=== PATIENT | female | born 1945 | race African-American/Black ===

== ENCOUNTER → 2021-09-20 | Outpatient (CLI) | payer MEDICARE ==
[~2021-09-20] MED LIST: ACETYLCYST200 MG/1 M PO; ALDACTONE25 MG PO; ALLOPURINOL 10100 M3 PO; ASPIRIN325 PO; B COMPLEX1 EACH PO; BUMETANIDE 1 MG1 M1 PO; CARVEDILOL25 MG PO; ENTRESTO 24 MG1 EACH PO; FUROSEMIDE 40 M40 M1 PO; KLOR-CON 10 ER10 MEQ PO; MULTIVITAMINS PO; NEXIUM40 MG PO; PRAVACHOL40 MG PO; VICODIN PO; VITAMIN D310 MC2 PO; ZOFRAN4 MG PO; [UNRECOGNIZED DRUG - REMARK]
== END ==
LOC: SJCVC 12:39
PROVIDERS: ATTEND Internal Medicine Cardiovascular Disease
DX: R94.31 Abnormal electrocardiogram [ECG] [EKG] (principal); I13.0 Hypertensive heart and chronic kidney disease with heart failure and stage 1 through stage 4 chronic kidney disease, or unspecified chronic kidney disease; I50.22 Chronic systolic (congestive) heart failure; N18.9 Chronic kidney disease, unspecified; I42.0 Dilated cardiomyopathy; E78.2 Mixed hyperlipidemia; I44.7 Left bundle-branch block, unspecified; Z79.82 Long term (current) use of aspirin; Z79.899 Other long term (current) drug therapy; Z87.891 Personal history of nicotine dependence

== ENCOUNTER 2021-10-16 08:50 | Inpatient (IN) | payer MEDICARE ==
[~2021-10-16] VITALS: Ht 175.3 cm; Wt 73.5 kg
[2021-10-16 10:53] LABS: ABSOLUTE NEUTROPHILS 1.8 thou/uL (1.4-8.2); BASOPHILS 0.9 % (0.0-2.0); EOSINOPHILS 1.6 % (0.0-3.0); HEMATOCRIT 37.8 % (37.0-47.0); HEMOGLOBIN 12.4 gm/dL (12.0-15.0); LYMPHOCYTES 32.4 % (24.0-44.0); MCH 30.4 pg (26.0-34.0); MCHC 32.8 g/dL (28.0-37.0); MCV 92.6 fL (80.0-100.0); MONOCYTES 10.1 % (1.0-8.0); PLATELET COUNT 144 thou/uL (150-400); RBC 4.08 mil/uL (4.20-5.00); RDW 14.7 % (10.5-14.5); WBC 3.3 thou/uL (4.0-11.0)
[2021-10-16 10:55] LABS: CALCIUM 9.3 mg/dL (8.5-10.1); CREATININE 1.9 mg/dL (0.6-1.0)
[2021-10-16 10:57] VITALS: BP 137/69
[2021-10-16 10:58] LABS: APTT 36.9 Seconds (24.5-32.8); INR 1.04; PROTIME 11.3 Seconds (10.5-12.1)
[2021-10-16 11:01] LABS: ALBUMIN 3.6 g/dL (3.4-5.0); TOTAL BILIRUBIN 1.1 mg/dL (0.2-1.0); TOTAL PROTEIN 7.2 g/dL (6.4-8.2)
[2021-10-16] MEDS ORDERED: PROAIR HFA8.5 GM INH ×2 (11:06→11:07)
[2021-10-16] MEDS ORDERED: FLUTICASONE-SA1 EAC5 INH (11:07)
[2021-10-16] MEDS ORDERED: ASA81BEC PO (11:08)
[2021-10-16] MEDS ORDERED: BUMEX2 MG PO (11:12)
[2021-10-16] MEDS ORDERED: VITAMIN B COMP1 EACH PO (11:14)
[2021-10-16] MEDS ORDERED: PRAVACHOL40 MG PO (11:15)
[2021-10-16 17:00] VITALS: BP 107/71
[2021-10-16 18:07] VITALS: BP 123/76
--- NOTE | 2021-10-16 18:55 | NUR ---
ASSUMED CARE OF PATIENT AT 1700. PATIENT COMES FROM PACU AFTER AN UNSUSSESSFUL BIV ICD INSERTION. PATIENT TO GO FOR SURGERY IN THE AM WITH DR. CHUNG. ADMISSION HISTORY COMPLETED, PATIENT HAD DINNER AND IS RESTING IN THE ROOM AT THIS TIME.
[2021-10-16 19:19] VITALS: BP 97/58
[2021-10-16 23:41] VITALS: BP 113/64
[2021-10-17] VITALS (7 sets, daily range): BP systolic 103–150; BP diastolic 53–64
--- NOTE | 2021-10-17 07:34 | NUR ---
PT RESTING QUIETLY IN ROOM, DENIES PAIN, VSS, IMMOBILIZER IN PLACE, HIBICLENS BATH GIVEN X2, NPO SINCE MNOC, REPORT GIVEN TO PRE-OP RN PLAN TO GRT PT BETWEEN 8 AND 830, WILL CON'T TO MONITOR PER PPOC
[2021-10-17 07:51] LABS: CALCIUM 9.6 mg/dL (8.5-10.1); CREATININE 2.1 mg/dL (0.6-1.0); POTASSIUM 4.5 mmol/L (3.5-5.1)
--- NOTE | 2021-10-17 08:11 | HC ---
[facility] [place] [address] [place] [address] CONSULTATION Name: LATIA ANTONIO Room #: 202-P [facility] MAbbe#: [id number] Admission: 10/16/21 Attend Phys: Issac Hill MD Discharge: Date of : 43 Report #: [id number] THIS REPORT FOR: cc: Teri Stoll MD, Julie MD Forman,Vinod Alegre MD ~ DATE OF SERVICE: 10/16/2021 We were asked by Dr. Hill for placement of ventricular leads for biventricular pacemaker. HISTORY OF PRESENT ILLNESS: The patient is a 76-year-old with nonischemic cardiomyopathy with increasing episodes of hospitalization for acute on chronic left ventricular systolic failure. The patient underwent cardiac catheterization in 06/2021 that showed no important coronary artery disease. There has been note of new onset of left bundle branch block. The patient was brought to the hospital today to upgrade to a biventricular cardioverter defibrillator. The patient is status post ICD placement in 2009 with a [employer] ICD. Device interrogation in the office showed a single-chamber [employer] ICD with pacing less than 1%, battery life is 1.5 years and there have been 10 nonsustained tachycardia episodes lasting a few seconds. No significant VT episodes. PAST MEDICAL HISTORY: Significant for dilated cardiomyopathy, hypertension, aortic valve insufficiency and chronic renal insufficiency. Echocardiogram in 05/2021 shows left ventricular ejection fraction of 20%, moderate mitral incompetence, moderate aortic incompetence, chronic renal insufficiency with a history of nephrectomy. Creatinine is currently 1.9, BUN 31. ALLERGIES: None known. MEDICATIONS: At home, albuterol, allopurinol, aspirin, B complex vitamins, Bumex, carvedilol, vitamin D, Nexium, Advair Diskus, hydrocodone, potassium, pravastatin and Entresto. FAMILY HISTORY: Significant for heart attack in mother. SOCIAL HISTORY: The patient is a former smoker. REVIEW OF SYSTEMS: GENERAL: No major weight changes, fever or chills. EYES: No recent vision changes. HEENT: No headache, sinus problems, hearing problems. CARDIAC: Shortness of breath with exertion. RESPIRATORY: Denies cough, sputum production, hemoptysis. GASTROINTESTINAL: No nausea, vomiting, diarrhea or blood. [address] [address] CONSULTATION Name: LATIA ANTONIO Room #: 202-P [facility] MBerto.#: [id number] Admission: 10/16/21 Attend Phys: Issac Hill MD Discharge: Date of : 43 Report #: [id number] GENITOURINARY: No urgency, frequency, blood. MUSCULOSKELETAL: No bone or joint complaints. ENDOCRINE: No goiter, no tremor. SKIN: No rash or infection. NEUROLOGIC: No motor or sensory dysfunction. PSYCHIATRIC: No significant depression. HEMATOLOGIC: No anemia. No bruising. PHYSICAL EXAMINATION: GENERAL: The patient is in bed after her procedure. VITAL SIGNS: Today, temperature 36.4, heart rate 94, respiratory rate 17, blood pressure 107/71, O2 sat 100% on room air. HEENT: No scleral icterus. Arcus senilis is present. NECK: No mass, no bruit. CHEST: Clear to auscultation anteriorly. HEART: Rhythm regular. I hear no significant murmur. ABDOMEN: Soft. No tenderness. EXTREMITIES: No clubbing, cyanosis or edema. VASCULAR: 2+ dorsalis pedis pulses. SKIN: No rash or infection. MUSCULOSKELETAL: No bone or joint asymmetry or deformity. NEUROLOGIC: No gross neurologic dysfunction. PSYCHIATRIC: Shows insight into problem; is awake, oriented x 3. ASSESSMENT AND PLAN: The patient has heart failure and biventricular pacemaker placement was foiled today by inability to place a LV lead. I have been asked to do this surgically. I have discussed risks and details of left anterior thoracotomy with placement of LV lead with the patient and her . Risks include but are not limited to bleeding, infection, anesthesia risks and risks of heart and lung function. The patient is at high risk due to poor ventricular function, but that is the essence of the problem we are trying to address. The patient and understand all of this and wish to proceed. I have arranged for surgery for tomorrow morning at 9:30. Thank you for the consult. <ELECTRONICALLY SIGNED> By: Vinod Frias MD 10/17/21 0811 [id number] 0051 Vinod Frias MD /nt
--- NOTE | 2021-10-17 12:00 | NUR ---
PT TRANSFERED TO [facility] VIA BED. NO CO'S AT TIME OF TREANSFER. PT TO ICU POST SURGERY.
[2021-10-17 13:49] LABS: BE(vivo) -1.6 mmol/L (-2 to +3); PCO2 56.3 mmHg (35.0-45.0); PO2 84.1 mmHg (80.0-100.0); sO2 94.9 % (92.0-98.0)
[2021-10-17 13:50] LABS: pH 7.282 (7.360-7.450)
--- NOTE | 2021-10-17 16:57 | NUR ---
1530-Received pt into 250 via bed from PACU.Pt moaning constantly,lying w eyes closed.--VW 1600- IN.--VW 1630- IN TO SEE.--VW
[2021-10-18 03:44] VITALS: BP 113/59
[2021-10-18 05:06] LABS: HEMATOCRIT 30.9 % (37.0-47.0); HEMOGLOBIN 10.5 gm/dL (12.0-15.0); MCH 30.9 pg (26.0-34.0); MCHC 33.8 g/dL (28.0-37.0); MCV 91.4 fL (80.0-100.0); RBC 3.38 mil/uL (4.20-5.00); RDW 15.1 % (10.5-14.5); WBC 5.4 thou/uL (4.0-11.0)
[2021-10-18 05:08] LABS: CREATININE 1.5 mg/dL (0.6-1.0)
[2021-10-18 07:44] VITALS: BP 127/62
[2021-10-18 11:44] VITALS: BP 126/62
[2021-10-18] MEDS ORDERED: MINOCYCLINE HC100 M2 PO (12:57)
[2021-10-18 15:44] VITALS: BP 120/61
--- NOTE | 2021-10-18 17:05 | NUR ---
PATIENT PROGRESSING TOWARDS THE PLAN OF CARE EVIDENCED BY PT NO LONGER NEEDING CARDENE TO KEEP SBP<160. OF THE PATIENT IN THE ROOM FOR THE MORNING.
[2021-10-18 19:44] VITALS: BP 113/57
[2021-10-19 03:44] VITALS: BP 137/70
[2021-10-19 07:44] VITALS: BP 135/73
--- NOTE | 2021-10-19 09:35 | NUR ---
ASSUMED CARE OF PT AT 0700 PT IS RESTING COMFORTABLY DR. GOLDBERG NURSE AT BEDSIDE AT 0830, POSSIBLE REMOVAL OF CHAUHAN AND ART LINE, THE NURSE WAS GOING TO GIVE AND UPDATE TO DR. CHUNG AND THEN LET ME KNOW.
--- NOTE | 2021-10-19 09:55 | NUR ---
Chart reviewed and case discussed with the care team. Pt is s/p bi-ventricular ICD placement with chest tube in place. Blood pressure and pain control issues yesterday. Awaiting CTS and cardiology imput regarding when her chest tube can come out and advancing her activity which has been limited. Pt is from home and lives with her spouse. Report to have been indep with gait and adl's. PCP is Dr Teri Stoll. Insurance in place for f/u care and scripts. No therapy orders noted at this time. Will follow along should dc needs arise.
[2021-10-19 11:44] VITALS: BP 131/73
--- NOTE | 2021-10-19 12:55 | NUR ---
CORAL CRANE, POLEYARD SUPERVISOR,IN TO SEE. CT TO WATER SEAL. IN TO SEE.--VW
[2021-10-19 13:09] LABS: HEMATOCRIT 31.7 % (37.0-47.0); HEMOGLOBIN 10.7 gm/dL (12.0-15.0); MCH 30.5 pg (26.0-34.0); MCHC 33.7 g/dL (28.0-37.0); MCV 90.5 fL (80.0-100.0); RBC 3.5 mil/uL (4.20-5.00); RDW 14.7 % (10.5-14.5); WBC 4.8 thou/uL (4.0-11.0)
[2021-10-19 13:22] LABS: CALCIUM 8.6 mg/dL (8.5-10.1); CREATININE 1.2 mg/dL (0.6-1.0); POTASSIUM 3.9 mmol/L (3.5-5.1)
[2021-10-19 15:45] VITALS: BP 135/76
[2021-10-19 19:44] VITALS: BP 116/66
[2021-10-19 23:44] VITALS: BP 125/65
[2021-10-20 03:14] VITALS: BP 129/75
[2021-10-20 05:13] VITALS: BP 109/76
[2021-10-20 06:13] VITALS: BP 133/79
--- NOTE | 2021-10-20 08:59 | NUR ---
ASSUMED CARE OF PT AT 0700
--- NOTE | 2021-10-20 14:07 | NUR ---
I have reviewed the documentation by AMINA MOSLEY from 10/20/21 to 10/20/21 and I concur with it. BECK LOPEZ, PT, DPT
[2021-10-20 14:54] VITALS: BP 147/74
--- NOTE | 2021-10-20 17:27 | NUR ---
Chart reviewed and pt was evaluated by thearpy and cleared for home. No hh or dme indicated.
--- NOTE | 2021-10-25 12:37 | O ---
[facility] [place] [address] [place] [address] OPERATIVE REPORT Name: LATIA ANTONIO Room #: 250-P [facility] M.R.#: [id number] Admission: 10/16/21 Attend Phys: Issac Hill MD Discharge: 10/20/21 Date of : 43 Report #: [id number] THIS REPORT FOR: cc: Teri Stoll MD, Julie MD Forman,Vinod Alegre MD ~ DATE OF SERVICE: 10/17/2021 PREOPERATIVE DIAGNOSIS: Left ventricular dysfunction. POSTOPERATIVE DIAGNOSIS: Left ventricular dysfunction. OPERATION: Left anterior thoracotomy with left ventricular lead placement for biventricular pacemaker. SURGEON: Vinod Frias MD ASSISTANTS: DANNY Khan. ANESTHESIA: General. INDICATIONS: The patient is a 76-year-old seen for Dr. Hill. Dr. Hill had tried to place a left ventricular lead to supplement an already implanted defibrillator and converted to a biventricular pacing device. Unfortunately, he was unable to place the LV lead and our assistance was requested. FINDINGS AND TECHNIQUE: After general anesthesia was established, a double lumen endotracheal tube was placed and its position ascertained under bronchoscopic guidance. The patient was positioned with left side slightly elevated and exposure was obtained through left anterior thoracotomy. An inframammary incision was made and the chest was entered in an available interspace. The pericardium was opened and the left anterior descending artery was identified. A [employer] pacemaker was placed just lateral to the left anterior descending and it was tested. Good R wave characteristics and good pacing characteristics were obtained. The pacemaker incision in the subclavicular space was opened. A tunnel was made and the lead was brought up into this pocket and then it was attached to the already implanted pacemaker. The pacemaker appeared to work properly. [facility] [address] [place] [address] OPERATIVE REPORT Name: LATIA ANTONIO Room #: 250-P [facility] IN M.R.#: [id number] Admission: 10/16/21 Attend Phys: Issac Hill MD Discharge: 10/20/21 Date of : 43 Report #: [id number] Hemostasis was ascertained in all areas. A chest tube was brought through a separate stab wound and placed in the left chest and then the chest wound was closed in layers. The infraclavicular incision for the pacemaker was closed as well. The patient tolerated the procedure well and was taken to the recovery area in good condition. All counts were reported as correct. <ELECTRONICALLY SIGNED> By: Vinod Frias MD 10/25/21 1237 [id number] 1330 Vinod Frias MD /nt
== END 2021-10-20 15:45 | disposition home or self-care (01) | DRG 261 ==
LOC: CATH 08:50 → ICU 17:02 → 2N 17:02 → ICU 10-17 15:33
PROVIDERS: Nurse Practitioner; Surgery Vascular Surgery; ADMIT Internal Medicine Cardiovascular Disease; ATTEND Internal Medicine Cardiovascular Disease
PROC: 0BH17EZ Insertion of Endotracheal Airway into Trachea, Via Natural or Artificial Opening (ICD-10-PCS; 2021-10-16)
PROC: 02HL0JZ Insertion of Pacemaker Lead into Left Ventricle, Open Approach (ICD-10-PCS; principal; 2021-10-17)
DX: I42.0 Dilated cardiomyopathy (principal); I50.22 Chronic systolic (congestive) heart failure; I13.0 Hypertensive heart and chronic kidney disease with heart failure and stage 1 through stage 4 chronic kidney disease, or unspecified chronic kidney disease; I44.7 Left bundle-branch block, unspecified; D69.6 Thrombocytopenia, unspecified; D64.9 Anemia, unspecified; J44.9 Chronic obstructive pulmonary disease, unspecified; I08.0 Rheumatic disorders of both mitral and aortic valves; N18.9 Chronic kidney disease, unspecified